=== PATIENT | female | born 1965 | race Caucasian/White ===

== ENCOUNTER 2017-08-07 15:27 | Outpatient (CLI) | payer OTHER | END 2017-08-07 15:28 | disposition home or self-care (01) | LOC: DTY/OP 15:27 | PROVIDERS: ATTEND Surgery | DX: I10 Essential (primary) hypertension (principal) | CPT/HCPCS: 97802 ==

== ENCOUNTER 2017-11-22 14:16 | Outpatient (CLI) | payer BC ==
[2017-11-22 15:39] LABS: #Basophils 0.1 thou/uL (0.0-0.2); #Eosinphils 0.1 thou/uL (0.0-0.7); #Lymphocytes 2.7 thou/uL (1.20-3.40); #Monocytes 0.6 thou/uL (0.11-0.59); #Neutrophils 2.5 thou/uL (1.40-6.50); %Basophils 1.4 % (0.0-1.0); %Eosinophils 1.8 % (0.0-10.0); %Lymphocytes 45.9 % (21.0-51.0); %Monocytes 9.7 % (0.0-10.0); %Neutrophils 41.3 % (42.0-75.0); Hemoglobin 12.9 g/dL (12.0-16.0); Mean Corpuscular HGB CONC 33.8 g/dL (32.0-36.0); Mean Corpuscular Hemoglobin 32.5 pg (27.0-31.0); Mean Corpuscular Volume 96.3 fl (81.0-99.0); Mean Platelet Volume 9.7 fL (7.4-10.4); Platelet Count 231 thou/uL (130-400); RBC Distribution Width 11.4 % (11.5-14.5); Red Blood Cell (RBC) Count 3.98 mill/uL (4.20-5.40); White Blood Cell (WBC) Count 5.9 thou/uL (4.8-10.8)
[2017-11-22 15:51] LABS: Hemoglobin A1c 5.3 % (4.0-6.0)
[2017-11-22 16:06] LABS: ALT (SGPT) 14 U/L (8-55); AST (SGOT) 15 U/L (5-34); Albumin 4.4 g/dL (3.5-5.0); Alkaline Phosphatase 59 U/L (40-150); Anion Gap 14 mmol/L (10-20); BUN (Urea Nitrogen) 18 mg/dL (9.8-20.1); Bilirubin, Direct 0.2 mg/dL (0.1-0.3); Bilirubin, Total 0.5 mg/dL (0.2-1.2); Calc. Creatinine Clearance 0 mL/min (70-130); Calcium 9.8 mg/dL (7.8-10.44); Carbon Dioxide 24 mmol/L (22-29); Chloride 107 mmol/L (98-107); Estimated GFR-MDRD 73; Globulin 2.5 g/dL (2.4-3.5); Glucose 82 mg/dL (70-105); Potassium 4.4 mmol/L (3.5-5.1); Protein, Total 6.9 g/dL (6.0-8.3); Sodium 141 mmol/L (136-145)
--- NOTE | 2017-11-22 16:29 | RAD ---
CHEST 2 VIEWS: HISTORY: Preop. COMPARISON: 11/22/06. FINDINGS: Cardiac silhouette and pulmonary vasculature are unremarkable. Mediastinum is midline. There is no confluent airspace consolidation, pneumothorax, or pleural fluid. IMPRESSION: No active cardiopulmonary abnormalities are demonstrated. POS: [facility]
== END 2017-11-22 14:17 | disposition home or self-care (01) ==
LOC: LABBT 14:16
PROVIDERS: ATTEND Surgery
DX: Z01.818 Encounter for other preprocedural examination (principal); Z01.812 Encounter for preprocedural laboratory examination; Z01.810 Encounter for preprocedural cardiovascular examination; E66.01 Morbid (severe) obesity due to excess calories
CPT/HCPCS: 71046; 80053; 80076; 83036; 85025; 93005; 93010

== ENCOUNTER 2017-11-22 17:00 | Inpatient (IN) | payer BC ==
[2017-12-05] MEDS ORDERED: Heparin 5,000 UNITS/ML VIAL ONE (06:11)
[2017-12-05] MEDS ORDERED: CEFAZOLIN/Water 2 GM/20 ML SYRINGE ONE (06:11)
[2017-12-05] MEDS ORDERED: Fentanyl 100 MCG/2 ML VIAL ONE (06:20)
[2017-12-05] MEDS ORDERED: Midazolam HCl 2 mg/2 ml Vial ONE (06:20)
[2017-12-05] MEDS ORDERED: Lidocaine 2% w/Epinephrine 1:200K 20 ML VIAL ONE (06:56)
[2017-12-05] MEDS ORDERED: Bupivacaine 0.25% HCL 30 ML VIAL ONE (06:56)
[2017-12-05] MEDS ORDERED: Promethazine HCl 25 MG/ML VIAL SLOW IVP PRN (08:04)
[2017-12-05] MEDS ORDERED: Morphine CADD 1 MG/ML CADD IVPB PRN (08:04)
[2017-12-05] MEDS ORDERED: diphenhydrAMINE 25 MG CAP PO PRN (08:04)
[2017-12-05] MEDS ORDERED: diphenhydrAMINE 50 MG/ML VIAL IVP PRN ×2 (08:04→08:52)
[2017-12-05] MEDS ORDERED: Naloxone HCl 0.4 mg/ml Vial IV PRN (08:04)
[2017-12-05] MEDS ORDERED: Ondansetron HCl/PF 4 MG/2 ML Vial IVP PRN (08:04)
[2017-12-05] MEDS ORDERED: HYDROmorphone 2 MG/ML VIAL SLOW IVP PRN (08:04)
[2017-12-05] MEDS ORDERED: Zolpidem Tartrate 5 MG TAB PO PRN (08:04)
[2017-12-05] MEDS ORDERED: Morphine Sulfate 2 MG/ML SYRINGE SLOW IVP PRN (08:04)
[2017-12-05] MEDS ORDERED: diphenhydrAMINE 50 MG/ML VIAL IM PRN (08:04)
[2017-12-05] MEDS ORDERED: Meperidine HCl/PF 25 MG/ML VIAL SLOW IVP PRN (08:04)
[2017-12-05] MEDS ORDERED: Promethazine HCl 25 MG/ML VIAL IM PRN ×2 (08:04→08:52)
[2017-12-05] MEDS ORDERED: Communication Order-Pharmacy FS SCH (08:15)
[2017-12-05] MEDS ORDERED: Hydrocodone-Acetamin 15 ML UDCUP PO PRN (08:52)
[2017-12-05] MEDS ORDERED: hydrALAZINE 20 MG/ML VIAL SLOW IVP PRN (08:52)
[2017-12-05] MEDS ORDERED: Dextrose 5% in Water 1,000 ML IV PRN (08:52)
[2017-12-05] MEDS ORDERED: Dextrose 50% Abboject 50 ML SYRINGE SLOW IVP PRN (08:52)
--- NOTE | 2017-12-05 09:59 | OP ---
PREOPERATIVE DIAGNOSIS: Morbid obesity. SURGEON: Rashad Felder M.D. PROCEDURE PERFORMED: Laparoscopic sleeve gastrectomy, esophagogastroscopy. INDICATIONS: A 52-year-old female, morbidly obese, who has attempted multiple weight loss programs w [facility]. FINDINGS: A 38-[place] bougie used. PROCEDURE IN DETAIL: After informed consent was obtained, the patient was taken to the operating joy m and given general endotracheal anesthesia. She was placed in the supine position. The abdomen was prepped and draped in the usual fashion. Local anesthesia infiltrated subcutaneously and deep 12 mm incision was performed approximately 8 inches below the xiphoid slightly to the left. Veress needle inserted. Drop test performed. Pneumoperitoneum was created to a volume of 2 liters of carbon diox ana. Utilizing a bladeless 12 mm trocar and 0 degree laparoscope, direct visual entry in the abdomin al cavity was performed. Pneumoperitoneum was created to a pressure of 15 mmHg. The patient placed in steep reverse Trendelenburg position. [facility]. Left lobe of liver ret racted superiorly. Pylorus identified. A 12 mm port placed on the right beneath it and two 12s plac ed left subcostal. The omentum was taken off the greater curvature of 5 cm from the pylorus utilizin g the LigaSure. Short gastrics divided with the LigaSure and left crura defined with the LigaSure. A 38-[place] bougie inserted and directed into the antrum. The linear 60 mm green load stapler used t o divide the antrum to the bougie, gold load along the bougie, and a series of blues through the angl e of His. Intraoperative endoscopy was performed. The video endoscope inserted under direct vision and advanced into the sleeve. The staple line inspected. There was no bleeding. Staple line then t ested by inflating the new stomach with pressurized air under water. There was no air leak. Stomach decompressed. Scope removed. The remnant stomach removed from the abdomen through the left lateral port site. The fascia closed with 0 Vicryl suture and the GraNee needle. The liver retractor was r emoved and the right side trocar site was inspected. There was bleeding when it was removed, so requ ired total of 3 sutures to control that bleeding. This was done with the GraNee needle and a 0 Vicry l suture. Hemostasis was assured. Trocars and retractors removed. The skin closed with interrupted 4-0 Rapide. Dermabond applied. The patient tolerated the procedure well and transferred to recover y in good condition. Sponge and needle count verified correct x2.
[2017-12-05] MEDS: D5 1/2 NS w/20 mEq KCL 1,000 ML IV SCH ×3 (11:23→22:35)
[2017-12-05] MEDS: Ondansetron HCl/PF 4 MG/2 ML Vial IVP PRN ×2 (11:23→19:12)
[2017-12-05] MEDS: Pantoprazole 40 MG VIAL IVP SCH ×2 (12:32→17:48)
[2017-12-05 12:34] VITALS: BMI 26.2
[2017-12-05] MEDS: CEFAZOLIN/Water 2 GM/20 ML SYRINGE SLOW IVP SCH ×2 (13:17→22:35)
[2017-12-05] MEDS ORDERED: Ondansetron HCl/PF 4 MG/2 ML Vial ONE (16:04)
[2017-12-05] MEDS ORDERED: Propofol 200 MG/20 ML VIAL ONE (16:04)
[2017-12-05] MEDS ORDERED: Ketorolac Tromethamine 30 MG/ML VIAL ONE (16:04)
[2017-12-05] MEDS ORDERED: Glycopyrrolate 0.2 MG/ML 5 ML SYRINGE ONE (16:04)
[2017-12-05] MEDS ORDERED: Dexamethasone 20 MG/5 ML VIAL ONE (16:04)
[2017-12-05] MEDS ORDERED: ePHEDrine/0.9% NaCl/PF SYRINGE 50 mg/10 ml ONE (16:04)
[2017-12-05] MEDS ORDERED: Lidocaine 1% PF 5 ML VIAL ONE (16:04)
[2017-12-06] MEDS: Ondansetron HCl/PF 4 MG/2 ML Vial IVP PRN ×2 (02:51→10:14)
[2017-12-06 04:39] LABS: #Lymphocytes 1.3 thou/uL (1.20-3.40); #Monocytes 0.8 thou/uL (0.11-0.59); #Neutrophils 6.5 thou/uL (1.40-6.50); %Lymphocytes 14.8 % (21.0-51.0); %Monocytes 9.6 % (0.0-10.0); %Neutrophils 75.6 % (42.0-75.0); Hemoglobin 10.1 g/dL (12.0-16.0); Mean Corpuscular HGB CONC 33.8 g/dL (32.0-36.0); Mean Corpuscular Hemoglobin 32.7 pg (27.0-31.0); Mean Corpuscular Volume 96.7 fl (81.0-99.0); Mean Platelet Volume 9.1 fL (7.4-10.4); Platelet Count 179 thou/uL (130-400); RBC Distribution Width 11.3 % (11.5-14.5); Red Blood Cell (RBC) Count 3.08 mill/uL (4.20-5.40); White Blood Cell (WBC) Count 8.6 thou/uL (4.8-10.8)
[2017-12-06 04:48] LABS: Anion Gap 12 mmol/L (10-20); BUN (Urea Nitrogen) 16 mg/dL (9.8-20.1); Calc. Creatinine Clearance 128 mL/min (70-130); Calcium 8.5 mg/dL (7.8-10.44); Carbon Dioxide 21 mmol/L (22-29); Chloride 107 mmol/L (98-107); Estimated GFR-MDRD 78; Glucose 155 mg/dL (70-105); Potassium 4.5 mmol/L (3.5-5.1); Sodium 135 mmol/L (136-145)
[2017-12-06] MEDS ORDERED: Enoxaparin Sodium 40 MG/0.4 ML SYRINGE SC SCH (06:00)
[2017-12-06] MEDS: Pantoprazole 40 MG VIAL IVP SCH (09:10)
--- NOTE | 2017-12-06 10:19 | RAD ---
LIMITED UPPER GI WITH 15 ML GASTROGRAFIN: HISTORY: Recent vertical sleeve gastrectomy. FINDINGS: There is prompt passage of contrast from the esophagus into the stomach and duodenum. No contrast ex travasation is seen. IMPRESSION: No evidence of obstruction or leak. POS: [facility]
--- NOTE | 2017-12-06 11:12 | DIS ---
DISCHARGE DIAGNOSIS: Morbid obesity. PROCEDURES DURING ADMISSION: Laparoscopic sleeve gastrectomy, intraoperative esophagogastroscopy, po stoperative Gastrografin swallow. HOSPITAL COURSE: The patient was admitted, taken to the operating room where she underwent a laparos copic sleeve gastrectomy. Postoperatively, she has done well. Her swallow was fine. She is tolerat ing liquids well. She is discharged home in good condition on hydrocodone and Zofran. She will foll ow up with me in 2 weeks.
[2017-12-06 11:48] VITALS: BP 135/82; TEMP 98.1
[2017-12-06] MEDS ORDERED: GASTROGRAFIN 30 ML BOT ONE (13:33)
[2017-12-07] MEDS ORDERED: Enoxaparin Sodium 40 MG/0.4 ML SYRINGE SC SCH (09:00)
== END 2017-12-06 11:22 | disposition home or self-care (01) | DRG 621 ==
LOC: SURG A 12-05 05:57 → SJJU 12-05 11:15 → EDSTATUS 12-05 17:00
PROVIDERS: ADMIT Surgery; ATTEND Surgery
PROC: 0DB64Z3 Excision of Stomach, Percutaneous Endoscopic Approach, Vertical (ICD-10-PCS; principal; 2017-12-05)
DX: E66.01 Morbid (severe) obesity due to excess calories (principal); J45.909 Unspecified asthma, uncomplicated; Z68.36 Body mass index [BMI] 36.0-36.9, adult; Z87.891 Personal history of nicotine dependence; Z88.1 Allergy status to other antibiotic agents; Z88.2 Allergy status to sulfonamides; Z79.82 Long term (current) use of aspirin; Z79.899 Other long term (current) drug therapy
CPT/HCPCS: 36415; 71046; 74241; 80048; 85025; 88307; 88312; 94760; C9113; J0131; J1100; J1644; J1650; J1885; J2001; J2250; J2274; J2405; J2704; J3010; S0020

== ENCOUNTER 2025-09-29 15:10 | Outpatient (CLI) | payer BC | END 2025-09-29 15:11 | disposition home or self-care (01) | LOC: CT 15:10 | PROVIDERS: ATTEND Physician Assistant | DX: R10.824 Left lower quadrant rebound abdominal tenderness (principal); Z98.84 Bariatric surgery status | CPT/HCPCS: 74176 ==